=== PATIENT | male | born 1950 | race American Indian/Alaskan Native ===

== ENCOUNTER → 2018-11-13 | Emergency (ER) | payer OTHER ==
[~2018-11-13] VITALS: Ht 180.3 cm; Wt 81.6 kg
[~2018-11-13] MED LIST: CATAPRES0.2 MG; DILTIAZEM ER120 MG; LASIX40 MG; LOSARTAN-HCTZ1 EAC1; NOVOLIN 70100 UNIT/1; XARELTO10 MG
== END | disposition left against medical advice (07) ==
LOC: ER 17:48
DX: Z53.20 Procedure and treatment not carried out because of patient's decision for unspecified reasons (principal)